=== PATIENT | female | born 1970 | race Caucasian/White ===

== ENCOUNTER 2016-10-05 17:52 | Emergency (ER) | payer BC ==
[~2016-10-05] VITALS: Ht 162.6 cm; Wt 77.0 kg
[~2016-10-05 17:52] MED LIST: AMOX875T PO; FLUT0.0529 NAE
[2016-10-05 17:54] VITALS: TEMP 36.8; Ht 162.6 cm; Wt 77.0 kg
[2016-10-05] MEDS ORDERED: SODIUM CHLORIDE 0.9% 1000ML 1,000 ML IV STA (18:21)
[2016-10-05 18:29] LABS: BASO % 0.3 %; BASO ABS # 0.02 K/uL (0-0.2); COMPLETE YES; EOS % 0.5 %; IG% 0.3 %; LYMPH % 22.8 %; LYMPH ABS # 1.74 K/uL (1.2-3.4); MEAN CELL VOLUME 91.8 fL (80-100); MEAN CORPUSCULAR HEMOGLOBIN 31.5 pg (25-34); MEAN CORPUSCULAR HGB CONC 34.4 g/dl (32-36); MEAN PLATELET VOLUME 11.7 fL (7.4-10.4); MONO % 6.7 %; NEUT % 69.4 %; PLATELET COUNT 236 K/uL (130-400); RED BLOOD COUNT 4.25 M/uL (4.2-5.4); WHITE BLOOD COUNT 7.63 K/uL (4.8-10.8)
[2016-10-05 18:37] LABS: ALT/SGPT 17 U/L (12-78); BLOOD UREA NITROGEN 11 mg/dl (7-18); BUN/CREATININE RATIO 12.8 (10-20); CALCIUM 8.5 mg/dl (8.5-10.1); CARBON DIOXIDE 27 mmol/L (21-32); CHLORIDE 104 mmol/L (98-107); CREATININE 0.83 mg/dl (0.60-1.20); GLUCOSE 101 mg/dl (70-99); POTASSIUM 3.6 mmol/L (3.5-5.1); SODIUM 141 mmol/L (136-145)
[2016-10-05 18:40] LABS: ALKALINE PHOSPHATASE 80 U/L (45-117); AST/SGOT 14 U/L (15-37)
--- NOTE | 2016-10-05 19:05 | DIAGNOSTIC IMAGING REPORT ---
KUB CLINICAL HISTORY: LOWER ABDOMINAL PAIN pain COMPARISON STUDY: No previous studies for comparison. FINDINGS: The soft tissues, psoas shadows, renal outlines and intestinal gas pattern appear normal. There is no evidence for bowel obstruction. No abnormal abdominal calcifications are seen. Bilateral uterine tube stents are present. IMPRESSION: Normal study. Electronically signed by: Nnamdi Campbell M.D. 10/05/2016 7:03 PM Dictated Date/Time: 10/05/2016 7:03 PM
--- NOTE | 2016-10-05 19:21 | DIAGNOSTIC IMAGING REPORT ---
EXAMINATION: PELVIC ULTRASOUND CLINICAL HISTORY: LOWER ABD PAIN PAIN COMPARISON STUDY: None FINDINGS: The uterus measured 7.7 cm. The endometrial stripe measured 4 mm. The right ovary measured 3.0 cm with normal vascular flow. The left ovary measured 2.2 cm normal vascular flow. There is no ultrasonographic evidence of ovarian torsion. It should be noted that ovarian torsion can be present with normal Doppler ultrasonographic findings. There was no evidence of pathologic free pelvic fluid. IMPRESSION: Negative pelvic ultrasound Electronically signed by: Nnamdi Campbell M.D. 10/05/2016 7:20 PM Dictated Date/Time: 10/05/2016 7:18 PM
[2016-10-05] MEDS ORDERED: IBUP-103 PO (19:35)
[2016-10-05 19:36] VITALS: BP 146/100; PULSE 95; O2SAT 98
[2016-10-05 19:52] LABS: URINE APPEARANCE CLEAR (CLEAR); URINE BILIRUBIN NEG (NEG); URINE COLOR YELLOW; URINE NITRITE NEG (NEG); URINE PH 7.5 (4.5-7.5); URINE SPECIFIC GRAVITY 1.007 (1.000-1.030); UROBILINOGEN NEG (NEG)
--- NOTE | 2016-10-05 20:14 | EMERGENCY ROOM VISIT NOTE ---
History First contact with patient: 18:02 Chief Complaint: ABDOMINAL PAIN Stated Complaint: ABDOMINAL PAIN Nursing Triage Summary: abdominal pain for the past week. i am also nauseated. denies d/v. denies urinary trouble. they said my urine looked good at [facility] History of Present Illness The patient is a 45 year old female who presents to the Emergency Room with complaints of persistent lower abdominal pain. The patient reports that her symptoms started 1 week ago with increased urinary frequency and urgency. The patient reports that those symptoms resolved within 2 days. Now she is complaining of mild nausea and mild right flank pain. She was seen this afternoon at the [facility] urgent care center, with urinalysis showing no acute abnormalities. They suggested that she come to the emergency department for further evaluation. The patient does report a prior history of constipation. She does not feel that she has been constipated recently. She reports that her menses are still regular, but are becoming significantly more heavy over the past several months. She has not followed up with her [employer] [facility]. Last menstruation was last week. She reports that the urinary symptoms have now resolved. She denies any worsening pain with ambulation or movement. She did initially have some mild nausea which has also since resolved. She denies any current fevers or chills. She also denies any recent cough or chest pain. She currently rates her discomfort a 6 out of 10. Review of Systems HEENT: Denies dizziness, visual problems, hearing loss, tinnitus. Denies difficulty swallowing or oral lesions. PULMONARY: Denies cough, shortness of breath, sputum production or hemoptysis. CARDIOVASCULAR: Denies chest pain, palpitations, dyspnea on exertion, orthopnea or peripheral edema. GASTROINTESTINAL: Denies recent diarrhea or constipation. Otherwise see history of present illness. GENITOURINARY: Reports recent dysuria, frequency and urgency. Denies nocturia. NEUROLOGIC: Denies history of epilepsy, CVA, TIA or chronic headaches. MUSCULOSKELETAL: Denies history of joint tenderness/swelling. SKIN: Denies rashes or lesions. PSYCHIATRIC: Denies history of depression or mental illness. ENDOCRINE: Denies history of diabetes or thyroid disorders. Past Medical/Surgical History Medical Problems: (1) Esophageal Reflux (2) Irritable Bowel Syndrome (3) Personal History Of Urinary Calculi Surgical Problems: (1) History of sinus surgery Family History FH: cancer FH: gallbladder disease FH: heart disease FH: hypertension FH: kidney disease Social History Smoking Status: Never Smoker Alcohol Use: none Drug Use: none Marital Status: Housing Status: lives with family Occupation Status: employed Current/Historical Medications Miscellaneous Medications Ibuprofen Tab (Advil), 200 MG PO Allergies Coded Allergies: Azithromycin (Verified Allergy, Mild, RASH, 10/05/16) Dicyclomine (Verified Adverse Reaction, Unknown, HEART RACES, 10/05/16) Physical Exam Vital Signs Date Time Temp Pulse Resp B/P Pulse Ox O2 Delivery O2 Flow Rate FiO2 10/05/16 19:36 95 18 146/100 98 Room Air 10/05/16 17:54 36.8 104 18 158/98 100 Room Air Physical Exam CONSTITUTIONAL: Healthy and well nourished. Alert and oriented X 3 with positive affect. Patient does not appear in any acute distress on exam. HEENT: Normocephalic, atraumatic. Pupils equal, round and reactive. No sclerae icterus or conjunctival pallor. OROPHARYNX: No posterior pharyngeal erythema or tonsillar hypertrophy. NECK: Full active range of motion without discomfort. No JVD or carotid bruits. RESPIRATORY: Clear to auscultation bilaterally with no wheezing, crackles, rhonchi or stridor. CARDIOVASCULAR: Regular rate and rhythm with no murmurs, rubs or gallops. GASTROINTESTINAL: Bowel sounds present in all quadrants. The patient has no significant tenderness to palpation of the abdomen. Negative McBurney's point tenderness. Negative Rovsing sign. Negative heel tap. Negative CVA tenderness. No abdominal rigidity, guarding or rebound. MUSCULOSKELETAL: Full range of motion of all joints without discomfort. INTEGUMENTARY: No rash or other significant dermatologic conditions noted. HEMATOLOGIC: No ecchymosis or petechiae noted. NEUROLOGIC: No focal neurologic deficits noted. Medical Decision & Procedures ER Provider Diagnostic Interpretation: My interpretation of an abdomen KUB x-ray does not show any obstructive pattern or significant fecal load. Radiologist report is as follows: KUB CLINICAL HISTORY: LOWER ABDOMINAL PAIN pain COMPARISON STUDY: No previous studies for comparison. FINDINGS: The soft tissues, psoas shadows, renal outlines and intestinal gas pattern appear normal. There is no evidence for bowel obstruction. No abnormal abdominal calcifications are seen. Bilateral uterine tube stents are present. IMPRESSION: Normal study. Pelvic ultrasound was normal, and as follows: EXAMINATION: PELVIC ULTRASOUND CLINICAL HISTORY: LOWER ABD PAIN PAIN COMPARISON STUDY: None FINDINGS: The uterus measured 7.7 cm. The endometrial stripe measured 4 mm. The right ovary measured 3.0 cm with normal vascular flow. The left ovary measured 2.2 cm normal vascular flow. There is no ultrasonographic evidence of ovarian torsion. It should be noted that ovarian torsion can be present with normal Doppler ultrasonographic findings. There was no evidence of pathologic free pelvic fluid. IMPRESSION: Negative pelvic ultrasound Laboratory Results 10/05/16 18:10 Red Blood Count 4.25, Mean Corpuscular Volume 91.8, Mean Corpuscular Hemoglobin 31.5, Mean Corpuscular Hemoglobin Concent 34.4, Mean Platelet Volume 11.7, Neutrophils (%) (Auto) 69.4, Lymphocytes (%) (Auto) 22.8, Monocytes (%) (Auto) 6.7, Eosinophils (%) (Auto) 0.5, Basophils (%) (Auto) 0.3, Neutrophils # (Auto) 5.30, Lymphocytes # (Auto) 1.74, Monocytes # (Auto) 0.51, Eosinophils # (Auto) 0.04, Basophils # (Auto) 0.02 10/05/16 18:10 Test 10/05/16 18:10 10/05/16 19:35 White Blood Count 7.63 K/uL (4.8-10.8) Red Blood Count 4.25 M/uL (4.2-5.4) Hemoglobin 13.4 g/dL (12.0-16.0) Hematocrit 39.0 % (37-47) Mean Corpuscular Volume 91.8 fL (80-100) Mean Corpuscular Hemoglobin 31.5 pg (25-34) Mean Corpuscular Hemoglobin Concent 34.4 g/dl (32-36) Platelet Count 236 K/uL (130-400) Mean Platelet Volume 11.7 fL (7.4-10.4) Neutrophils (%) (Auto) 69.4 % Lymphocytes (%) (Auto) 22.8 % Monocytes (%) (Auto) 6.7 % Eosinophils (%) (Auto) 0.5 % Basophils (%) (Auto) 0.3 % Neutrophils # (Auto) 5.30 K/uL (1.4-6.5) Lymphocytes # (Auto) 1.74 K/uL (1.2-3.4) Monocytes # (Auto) 0.51 K/uL (0.11-0.59) Eosinophils # (Auto) 0.04 K/uL (0-0.5) Basophils # (Auto) 0.02 K/uL (0-0.2) RDW Standard Deviation 42.3 fL (36.4-46.3) RDW Coefficient of Variation 12.7 % (11.5-14.5) Immature Granulocyte % (Auto) 0.3 % Immature Granulocyte # (Auto) 0.02 K/uL (0.00-0.02) Anion Gap 10.0 mmol/L (3-11) Est Creatinine Clear Calc Drug Dose 87.8 ml/min Estimated GFR () 100.1 Estimated GFR (Non- 86.4 BUN/Creatinine Ratio 12.8 (10-20) Calcium Level 8.5 mg/dl (8.5-10.1) Total Bilirubin 0.3 mg/dl (0.2-1) Direct Bilirubin < 0.1 mg/dl (0-0.2) Aspartate Amino Transf (AST/SGOT) 14 U/L (15-37) Alanine Aminotransferase (ALT/SGPT) 17 U/L (12-78) Alkaline Phosphatase 80 U/L (45-117) Total Protein 8.1 gm/dl (6.4-8.2) Albumin 4.0 gm/dl (3.4-5.0) Lipase 184 U/L (73-393) Urine Color YELLOW Urine Appearance CLEAR (CLEAR) Urine pH 7.5 (4.5-7.5) Urine Specific [place] 1.007 (1.000-1.030) Urine Protein NEG (NEG) Urine Glucose (UA) NEG (NEG) Urine Ketones TRACE (NEG) Urine Occult Blood NEG (NEG) Urine Nitrite NEG (NEG) Urine Bilirubin NEG (NEG) Urine Urobilinogen NEG (NEG) Urine Leukocyte Esterase NEG (NEG) Urine Test NEG (NEG) The above labs were reviewed and were grossly normal. Medications Administered Medications (Trade) Dose Ordered Sig/Alaina Route Start Time Stop Time Status Last Admin Dose Admin Sodium Chloride (Nss 1000ml) 1,000 ml @ 999 mls/hr Q1H1M STAT IV 10/05/16 18:21 10/05/16 19:21 DC 10/05/16 18:38 999 MLS/HR ED Course Patient history and physical exam were performed. Nurse's notes were reviewed. Vital signs were reviewed and were normal. IV access was established, and labs were drawn. The patient was hydrated with a liter of normal saline. The patient initially refused any analgesics or antiemetics. Review of labs shows no acute abnormalities. A KUB x-ray does not show any obstructive pattern or significant fecal load. Pelvic ultrasound was also normal. The case was further discussed with Dr. Smiley, ED attending physician, who agrees with outpatient follow-up and management. Results were discussed with the patient. The patient is wondering whether her symptoms could be secondary to her IBD. I explained that that certainly would not cause urinary symptoms. However, her workup today is not suggestive of UTI or pyelonephritis. At this point, I suggested that the patient follow up with her PCP within the next 48 hours for recheck and referral to specialties as warranted. She was encouraged to alternate ibuprofen and Tylenol as needed for pain. She refused any stronger analgesics. She was instructed to return to the emergency department for any progressively worsening pain, vomiting, developing fever, rectal bleeding or other concerning symptoms. The patient was happy with plan of care , and rated her discomfort a 2 out of 10 at the time of discharge with her . Medical Decision Patient presents to the emergency department with complaint of lower abdominal pain. Her symptoms initially started with urinary symptoms. Her workup today, however, is not suggestive of UTI. The patient does have a history of IBS. X- ray does not show any obstructive pattern or significant fecal load. She is afebrile and has no leukocytosis. Lab work also is not suggestive of pancreatitis, cholecystitis or hepatitis. Other pelvic etiologies were entertained but not felt to be contributing to her current discomfort. Her ultrasound is also normal. Impression Primary Impression: Lower abdominal pain Departure Information Referrals Bethany Reece [email or web address] (PCP) Patient Instructions [facility]
[2016-10-05 20:15] LABS: MANUAL MICROSCOPIC REQUIRED? NO; REVIEW REQ? NO
== END 2016-10-05 19:55 | disposition home or self-care (01) ==
LOC: C.EDB 17:53
DX: R10.30 Lower abdominal pain, unspecified (principal); K21.9 Gastro-esophageal reflux disease without esophagitis; K58.9 Irritable bowel syndrome, unspecified; Z87.442 Personal history of urinary calculi; Z82.49 Family history of ischemic heart disease and other diseases of the circulatory system; Z84.1 Family history of disorders of kidney and ureter

== ENCOUNTER → 2018-03-25 | Outpatient (CLI) | payer BC ==
[~2018-03-25] MED LIST changes: -AMOX875T PO; -FLUT0.0529 NAE; +IBUP-103 PO
--- NOTE | 2018-03-25 08:23 | DIAGNOSTIC IMAGING REPORT ---
KUB HISTORY: R39.9 Urinary symptom or signR10.2 Suprapubic abdominal painRAD8 COMPARISON: KUB 10/05/2016. FINDINGS: The bowel gas pattern is unremarkable. There are no dilated loops of small bowel to suggest an obstruction. No renal calculi. No ureteral calculi. Calcifications in the deep pelvis likely represent phleboliths. These remain unchanged. Bilateral tubal ligation devices are again noted. No pneumoperitoneum or pneumatosis. IMPRESSION: No renal or ureteral stones. Electronically signed by: Chin Cavanaugh M.D. 03/25/2018 8:21 AM Dictated Date/Time: 03/25/2018 8:20 AM
--- NOTE | 2018-03-25 08:36 | DIAGNOSTIC IMAGING REPORT ---
(IVA/BLAD)RETROPERITON COMP CLINICAL HISTORY: 47 years-old Female presenting with R39.9 Urinary symptom or sign R10.2 Suprapubic abdominal pain. TECHNIQUE: Real-time grayscale and limited color Doppler ultrasound imaging of the kidneys and bladder was performed. COMPARISON: CT from 10/14/2013. FINDINGS: Right kidney: Normal echogenicity of renal parenchyma. Right kidney measures 10.9 cm. Mild pelviectasis. No hydronephrosis. Subcentimeter cysts noted in the interpolar region. Left kidney: Normal echogenicity of renal parenchyma. Left kidney measures 11.3 cm. No hydronephrosis. No convincing evidence of calculus or mass. Bladder: Normal. Bilateral ureteral jets present. Other: None. IMPRESSION: 1. Mild right pelviectasis, nonspecific. Pelviectasis was noted on prior CT. No convincing evidence of hydronephrosis. Electronically signed by: Rich Hubbard M.D. 03/25/2018 8:34 AM Dictated Date/Time: 03/25/2018 8:33 AM
== END | disposition home or self-care (01) ==
LOC: C.ULTR 07:54
PROVIDERS: ATTEND Family Medicine
DX: R39.9 Unspecified symptoms and signs involving the genitourinary system (principal); R10.2 Pelvic and perineal pain